=== PATIENT | female | born 1970 | race Caucasian/White ===

== ENCOUNTER 2017-04-05 14:59 | Emergency (ER) | payer OTHER ==
[~2017-04-05] VITALS: Ht 172.7 cm; Wt 95.0 kg
[2017-04-05 15:00] VITALS: BP 132/71; PULSE 89; RESP 17; TEMP 98.5; O2SAT 98
--- NOTE | 2017-04-05 15:18 | PD ---
Physical Exam Date Seen by Provider: Apr 05, 2017 Time Seen by Provider: 15:14 Data Data Last Documented VS Vital Signs Date Time Temp Pulse Resp B/P Pulse Ox O2 Delivery O2 Flow Rate FiO2 04/05/17 15:00 98.5 89 17 132/71 98 Orders Electrocardiogram (04/05/17 ) MDM Supervised Visit with DIEUDONNE: No Narrative Course 46 YO F with complaint of CP. States that she feel like her left lung, left shoulder and abdomen are "going to explode." Recent tx for dysuria, UTI. Not improved with antibiotic. Doctors office called to change abx last night. Vitals reviewed. Patient seen in triage, awaiting bed placement. Melissa Cast Apr 05, 2017 15:18
--- NOTE | 2017-04-05 17:11 | PD ---
HPI Chief Complaint: Chest Pain Time Seen by Provider: 16:55 Travel History International Travel<30 days: No Contact w/Intl Traveler<30days: No Traveled to known affect area: No History of Present Illness HPI 46-year-old female presents for evaluation of chest pain and abdominal pain. She reports that 2 weeks ago she developed mild pain on left side of her chest as well as in the epigastrium/left upper quadrant of the abdomen. She was apparently diagnosed with a urinary tract infection last week and started on Cipro which was changed to Macrobid yesterday. She reports that since yesterday she has had a much more severe pain in the left side of her chest which she describes it as a sharp pain which is constant but reproduced with deep inspiration. Symptoms have persisted and worsened which prompted evaluation today. She continues to endorse a pain in her epigastrium/left upper quadrant which is new as well. She denies any fevers or chills, cough or congestion, shortness of breath, flank pain. She endorses a history of test or perforation 2 years ago which is one of her concerns today given the location of her abdominal pain. No personal history of cardiac disease. She does endorse tobacco use. Denies any recent travel, recent surgery, history of DVT or PE, recent leg swelling or pain. No other complaints. PFSH Past Medical History ?: Not Social History Tobacco Use: Yes Allergies-Medications (Allergen,Severity, Reaction): Coded Allergies: Amoxicillin (Verified Allergy, Unknown, 04/05/17) Reported Meds & Prescriptions Reported Meds & Active Scripts Active Reported Nitrofurantoin Monohydrate Macrocrystals (Nitrofurantoin Monoh/Nitrofur Macro) 100 Mg Cap 100 Mg PO BID Bupropion HCl ER 12 HR (Bupropion HCl) 150 Mg Tab 150 Mg PO BID Escitalopram (Escitalopram Oxalate) 20 Mg Tab 20 Mg PO DAILY Protonix (Pantoprazole Sodium) 40 Mg Tab 40 Mg PO DAILY Review of Systems Except as stated in HPI: all other systems reviewed are Neg Physical Exam Narrative GENERAL: Well-developed well-nourished female in no acute distress SKIN: Warm and dry. HEAD: Atraumatic. Normocephalic. EYES: Pupils equal and round. No scleral icterus. No injection or drainage. ENT: No nasal bleeding or discharge. Mucous membranes pink and moist. NECK: Trachea midline. No JVD. CARDIOVASCULAR: Regular rate and rhythm. No murmur appreciated. RESPIRATORY: No accessory muscle use. Clear to auscultation. Breath sounds equal bilaterally. GASTROINTESTINAL: Abdomen soft, mild left upper quadrant tenderness without guarding. MUSCULOSKELETAL: No obvious deformities. No clubbing. No cyanosis. No edema. NEUROLOGICAL: Awake and alert. No obvious cranial nerve deficits. Motor grossly within normal limits. Normal speech. PSYCHIATRIC: Appropriate mood and affect; insight and judgment normal. Data Data Last Documented VS Vital Signs Date Time Temp Pulse Resp B/P Pulse Ox O2 Delivery O2 Flow Rate FiO2 04/05/17 19:16 73 18 91/50 97 Room Air 04/05/17 15:00 98.5 Orders Electrocardiogram (04/05/17 ) Complete Blood Count With Diff (04/05/17 17:05) Comprehensive Metabolic Panel (04/05/17 17:05) Lipase (04/05/17 17:05) Urinalysis - C+S If Indicated (04/05/17 17:05) Iv Access Insert/Monitor (04/05/17 17:05) Ecg Monitoring (04/05/17 17:05) Oximetry (04/05/17 17:05) Ondansetron Inj (Zofran Inj) (04/05/17 17:15) Pantoprazole Inj (Protonix Inj) (04/05/17 17:15) Sodium Chloride 0.9% Flush (Ns Flush) (04/05/17 17:15) Chest, Single Ap (04/05/17 17:05) Morphine Inj (Morphine Inj) (04/05/17 17:15) Al-Mag Hy-Si 40-40-4 Mg/Ml Liq (Mag-Al P (04/05/17 17:15) Lidocaine 2% Viscous (Xylocaine 2% Visco (04/05/17 17:15) Ckmb (Isoenzyme) Profile (04/05/17 17:05) D-Dimer (04/05/17 17:05) Troponin I (04/05/17 17:05) Ct Pulmonary Angiogram (04/05/17 17:53) Ct Abd/Pel W Iv Contrast(Rout) (04/05/17 17:53) Iohexol 350 Inj (Omnipaque 350 Inj) (6/27/17 19:11) Labs Laboratory Tests Test 04/05/17 04/05/17 17:15 17:20 Urine Color YELLOW Urine Turbidity CLEAR Urine pH 7.0 Urine Specific [place] 1.008 Urine Protein NEG mg/dL Urine Glucose (UA) NEG mg/dL Urine Ketones 10 mg/dL Urine Occult Blood NEG Urine Nitrite NEG Urine Bilirubin NEG Urine Urobilinogen LESS THAN 2.0 MG/DL Urine Leukocyte Esterase NEG Urine RBC 1 /hpf Urine WBC LESS THAN 1 /hpf Urine Squamous Epithelial <1 /hpf Cells Microscopic Urinalysis Comment CULT NOT INDICATED White Blood Count 10.8 TH/MM3 Red Blood Count 4.88 MIL/MM3 Hemoglobin 14.9 GM/DL Hematocrit 44.5 % Mean Corpuscular Volume 91.3 FL Mean Corpuscular Hemoglobin 30.6 PG Mean Corpuscular Hemoglobin 33.6 % Concent Red Cell Distribution Width 15.0 % Platelet Count 395 TH/MM3 Mean Platelet Volume 8.2 FL Neutrophils (%) (Auto) 75.7 % Lymphocytes (%) (Auto) 16.9 % Monocytes (%) (Auto) 6.2 % Eosinophils (%) (Auto) 0.8 % Basophils (%) (Auto) 0.4 % Neutrophils # (Auto) 8.2 TH/MM3 Lymphocytes # (Auto) 1.8 TH/MM3 Monocytes # (Auto) 0.7 TH/MM3 Eosinophils # (Auto) 0.1 TH/MM3 Basophils # (Auto) 0.0 TH/MM3 CBC Comment DIFF FINAL Differential Comment D-Dimer Quantitative (PE/DVT) 0.56 MG/L FEU Sodium Level 138 MEQ/L Potassium Level 3.9 MEQ/L Chloride Level 102 MEQ/L Carbon Dioxide Level 26.1 MEQ/L Anion Gap 10 MEQ/L Blood Urea Nitrogen 5 MG/DL Creatinine 0.84 MG/DL Estimat Glomerular Filtration 73 ML/MIN Rate Random Glucose 77 MG/DL Calcium Level 9.1 MG/DL Total Bilirubin 0.4 MG/DL Aspartate Amino Transf 16 U/L (AST/SGOT) Alanine Aminotransferase 19 U/L (ALT/SGPT) Alkaline Phosphatase 131 U/L Total Creatine Kinase 41 U/L Troponin I LESS THAN 0.02 NG/ML Total Protein 7.9 GM/DL Albumin 3.6 GM/DL Lipase 162 U/L [facility] Medical Decision Making Medical Screen Exam Complete: Yes Emergency Medical Condition: Yes Medical Record Reviewed: Yes Interpretation(s) EKG sinus rhythm rate 79 CBC unremarkable CMP unremarkable Troponin within normal limits CK within normal limits Lipase within normal limits Urinalysis 10 ketones D-dimer 0.56 Chest x-ray normal CT abdomen and pelvis with IV contrast CT pulmonary angiogram negative Differential Diagnosis Gastritis, perforated peptic ulcer, pancreatitis, PE, costochondritis, pleurisy , acute coronary syndrome, pneumothorax, pericarditis, myocarditis Narrative Course 46-year-old female who has been experiencing some pain in her epigastrium/left lower quadrant, left side of her chest over the past 2 weeks, now presents with worsened pleuritic left-sided chest pain since yesterday. The medication she has mild tenderness to palpation left upper quadrant. Plans for basic lab work , chest x-ray. She'll be given a GI cocktail, Protonix, morphine and Zofran. 12-lead EKG was obtained and interpreted. She was placed on ECG monitoring and pulse oximetry. The d-dimer is mildly elevated and given her pleuritic chest pain a CT pulmonary angiogram has therefore been ordered to rule out pulmonary embolism. Her urinalysis reveals no evidence of infection. CT pulmonary angiogram is normal. Lab work is essentially unremarkable. CT abdomen and pelvis reveals no acute abnormalities, there is cervical the left adnexa and the radiologist recommends a routine outpatient pelvic ultrasound for further evaluation. At this point time the patient is currently in the process of getting a referral to Dr. Mendosa for further evaluation of her left upper quadrant issues. Her primary care physician Dr. Sales is referring her. The pain is currently mild, she has no peritoneal signs. I did offer to admit the patient and the chest pain center for further evaluation of her pleuritic chest pain, serial cardiac enzymes and rule out purposes however the patient is declining. She would prefer to follow up with her primary care physician as outpatient. This appears reasonable as her heart score puts her in a low risk category. She was given a copy of her CT abdomen and pelvis. She is stable for discharge. Procedures EKG Prior to Arrival: Yes Diagnosis Primary Impression: Pleuritic chest pain Additional Impression: Abdominal pain, unspecified site Referrals: Stanford Nieto MD Primary Care Physician Additional Instructions: As discussed, follow-up with her primary care physician in the next 1-2 days. Follow-up with Dr. Mendosa as previously discussed. Return for any acutely new or worsening symptoms. Med/Other Pt SpecificInfo: No Change to Meds Disposition: 01 DISCHARGE HOME Condition: Stable Darrius Haque Apr 05, 2017 17:11
[2017-04-05] MEDS ORDERED: ONDANSETRON HCL 4 MG/2 ML VIAL IVP ONE (17:15)
[2017-04-05] MEDS ORDERED: ALUMINUM/MAGNESIUM/SIMETH 30 ML CUP PO ONE (17:15)
[2017-04-05] MEDS ORDERED: MORPHINE SULFATE 4 MG/ML INJ IV PUSH ONE (17:15)
[2017-04-05] MEDS ORDERED: SODIUM CHLORIDE 0.9% FLUSH 10 ML FLUSH IV FLUSH PRN (17:15)
[2017-04-05] MEDS ORDERED: LIDOCAINE VISCOUS 2% SOLN 15 ML UDC PO ONE (17:15)
[2017-04-05] MEDS ORDERED: PANTOPRAZOLE SODIUM 40 MG VIAL IVP ONE (17:15)
[2017-04-05 17:37] LABS: AUTOMATED NEUTROPHIL # 8.2 TH/MM3 (1.8-7.7); BASOPHIL % 0.4 % (0.0-2.0); EOSINOPHIL # 0.1 TH/MM3 (0-0.4); EOSINOPHIL % 0.8 % (0.0-4.0); HEMATOCRIT 44.5 % (35.0-46.0); HEMO FLAGS DIFF FINAL; LYMPH % 16.9 % (9.0-44.0); LYMPHOCYTE # 1.8 TH/MM3 (1.0-4.8); MEAN CELL VOLUME 91.3 FL (80.0-100.0); MEAN CORPUSCULAR HEMOGLOBIN 30.6 PG (27.0-34.0); MEAN CORPUSCULAR HGB CONC 33.6 % (32.0-36.0); MONO % 6.2 % (0.0-8.0); NEUT % 75.7 % (16.0-70.0); PLATELET COUNT 395 TH/MM3 (150-450); RED BLOOD COUNT 4.88 MIL/MM3 (4.00-5.30); WHITE BLOOD COUNT 10.8 TH/MM3 (4.0-11.0)
[2017-04-05 17:37] LABS: BLOOD, URINE NEG (NEG); COMMENT (UR) CULT NOT INDICATED; CULTURE IF INDICATED CULT NOT INDICATED; GLUCOSE,URINE NEG (NEG); KETONE, URINE 10 mg/dL (NEG); NITRITE,URINE NEG (NEG); SQUAMOUS EPITHELIAL CELL URINE <1 /hpf (0-5); URINE COLOR YELLOW (YELLW/STRAW)
[2017-04-05 17:40] VITALS: O2SAT 97
--- NOTE | 2017-04-05 17:40 | RADRPT ---
EXAM DATE/TIME: 04/05/2017 17:17 [facility] COMPARISON: No previous studies available for comparison. INDICATIONS : Chest pain. MEDICAL HISTORY : None. SURGICAL HISTORY : None. ENCOUNTER: Initial ACUITY: 1 day PAIN SCORE: 10/10 LOCATION: Bilateral chest FINDINGS: A single view of the chest demonstrates the lungs to be symmetrically aerated without evidence of mas s, infiltrate or effusion. The cardiomediastinal contours are unremarkable. Osseous structures are intact. CONCLUSION: No acute disease. Armando Villafana MD on April 05, 2017 at 17:37 Board Certified Radiologist. This report was verified electronically.
[2017-04-05 17:52] LABS: ALT (GPT) 19 U/L (10-53); ANION GAP 10 MEQ/L (5-15); AST (GOT) 16 U/L (15-37); BICARBONATE 26.1 MEQ/L (21.0-32.0); BLOOD UREA NITROGEN 5 MG/DL (7-18); CHLORIDE 102 MEQ/L (98-107); GLOMERULAR FILTRATION RATE 73 ML/MIN (>89); POTASSIUM 3.9 MEQ/L (3.5-5.1); SODIUM (NA) 138 MEQ/L (136-145)
[2017-04-05 17:56] LABS: ALKALINE PHOSPHATASE 131 U/L (45-117); TOTAL BILIRUBIN ADULT 0.4 MG/DL (0.2-1.0)
[2017-04-05 17:58] LABS: CREATINE KINASE 41 U/L (26-192)
[2017-04-05 18:14] VITALS: BP 106/63; PULSE 76; RESP 18; O2SAT 97
[2017-04-05] MEDS ORDERED: BUPR150T5 PO (18:32)
[2017-04-05] MEDS ORDERED: NITR100C4 PO (18:32)
[2017-04-05] MEDS ORDERED: ESCI20TA PO (18:32)
[2017-04-05] MEDS ORDERED: PROT40TA PO (18:32)
[2017-04-05] MEDS ORDERED: IOHEXOL 350 MG/ML 10 ML VIAL (for RAD DIAG) IV ONE (19:11)
[2017-04-05 19:16] VITALS: BP 91/50; PULSE 73; RESP 18; O2SAT 97
--- NOTE | 2017-04-05 19:21 | RADRPT ---
EXAM DATE/TIME: 04/05/2017 18:51 [facility] COMPARISON: No previous studies available for comparison. INDICATIONS : Patient complains of chest pain. IV CONTRAST: 73 cc Omnipaque 350 (iohexol) IV ; Cumulative dose for multiple exams. RADIATION DOSE: 15.03 CTDIvol (mGy) MEDICAL HISTORY : None SURGICAL HISTORY : section. umbillical repair, balloon dilitation to intestine ENCOUNTER: Initial ACUITY: 1 day PAIN SCALE: 5/10 LOCATION: Bilateral chest TECHNIQUE: Volumetric scanning of the chest was performed using a pulmonary embolism protocol MIP images were re constructed. Using automated exposure control and adjustment of the mA and/or kV according to patien t size, radiation dose was kept as low as reasonably achievable to obtain optimal diagnostic quality images. DICOM format image data is available electronically for review and comparison. FINDINGS: PULMONARY ARTERIES: No filling defects are seen in the pulmonary arteries through the segmental level. LUNGS: There is no consolidation or pneumothorax . No concerning pulmonary nodule is visualized. PLEURAE: There is a minimal amount of left pleural fluid present. No right effusion is seen. MEDIASTINUM: There is good visualization of the great vessels of the middle mediastinum. No evidence of mediastin al or hilar adenopathy/mass. MUSCULOSKELETAL: Within normal limits for patient age. MISCELLANEOUS: The visualized upper abdominal organs demonstrate no acute abnormality. Surgical material presumably from prior gastric bypass is seen in the left upper quadrant. CONCLUSION: No pulmonary embolus. Michael Rogers MD on April 05, 2017 at 19:15 Board Certified Radiologist. This report was verified electronically.
--- NOTE | 2017-04-05 19:37 | RADRPT ---
EXAM DATE/TIME: 04/05/2017 18:53 [facility] COMPARISON: No previous studies available for comparison. INDICATIONS : Patient complains of abdominal pain, recent UTI. IV CONTRAST: 73 cc Omnipaque 350 (iohexol) IV ; Cumulative dose for multiple exams. ORAL CONTRAST: No oral contrast ingested. RADIATION DOSE: 18.08 CTDIvol (mGy) MEDICAL HISTORY : None SURGICAL HISTORY : section. Umbilical repair, balloon dilatation intestine. ENCOUNTER: Initial ACUITY: 1 day PAIN SCALE: 5/10 LOCATION: Lower quadrant TECHNIQUE: Volumetric scanning of the abdomen and pelvis was performed. Using automated exposure control and adjustment of the mA and/or kV according to patient size, radiation dose was kept as low as reasonably achievable to obtain optimal diagnostic quality images. DICOM format image data is av ailable electronically for review and comparison. FINDINGS: The patient has clips in the left upper quadrant presumably from prior gastric bypass p rocedure. The patient appears to be status post cholecystectomy with the gallbladder not seen. There is a 3 mm calcification in the right upper quadrant at the expected location of the cystic duct. Thi s may be a small cystic duct remnant stone. The liver appears normal. The spleen, pancreas, adrenal glands and kidneys appear normal. the aorta and IVC are unremarkable. Significant adenopathy is no t appreciated. The patient appears to be status post hysterectomy. There is a 3 cm low density mass seen at the lef t adnexa likely related to a cystic ovarian mass. The right adnexa is unremarkable. Free fluid is no t seen. The lung bases are clear. The bony structures are grossly intact. The patient does have postoperative change at the anterior abdominal wall from a midline incision. N o focal fluid collection is seen. CONCLUSION: 1. Suspected postoperative change from prior gastric bypass procedure. 2. 3 cm cystic mass at the left adnexa likely related to a left ovarian cyst. This could be further evaluated at some point with a pelvic ultrasound examination. 3. 3 mm calcification in the right upper quadrant. It appears the gallbladder is absent. This could be a small cystic duct remnant stone. Michael Rogers MD on April 05, 2017 at 19:23 Board Certified Radiologist. This report was verified electronically.
--- NOTE | 2017-04-06 23:40 | EKG ---
Date Performed: 04/05/2017 Time Performed: 15:24:52 PTAGE: 46 years EKG: Sinus rhythm NORMAL ECG NO PREVIOUS TRACING DOCTOR: Lavelle Enriquez Interpretating Date/Time 04/06/2017 23:38:16
== END 2017-04-05 20:48 | disposition home or self-care (01) ==
LOC: NEPD 14:59
DX: R07.81 Pleurodynia (principal); R10.13 Epigastric pain; R10.12 Left upper quadrant pain; Z72.0 Tobacco use
CPT/HCPCS: 71010; 71275; 74177; 80053; 81001; 82550; 83690; 84484; 85025; 85379; 93005; 96374; 96375; 99285; C9113; J2270; J2405; Q9967